=== PATIENT | female | born 1955 | race Caucasian/White ===

== ENCOUNTER → 2019-08-31 | Day surgery (SDC) | payer BC, OTHER ==
[2019-08-28 08:42] LABS: BASOPHILS # (AUTO) 0.1 (0.0-0.1); BASOPHILS % 0.9 % (0.0-1.0); EOSINOPHILS # (AUTO) 0.1 (0.0-0.4); EOSINOPHILS % 1.7 % (0.0-6.0); HEMATOCRIT 43.4 % (34.2-44.1); HEMOGLOBIN 13.7 g/dL (12.0-16.0); LYMPHOCYTES # (AUTO) 2.7 (1.0-3.2); LYMPHOCYTES % 41.6 % (18.0-39.1); MEAN CORPUSCULAR HEMOGLOBIN 26.7 pg (28-32); MEAN CORPUSCULAR HGB CONC 31.6 g/dL (31-35); MEAN CORPUSCULAR VOLUME 84.4 fL (81-99); MONOCYTES # (AUTO) 0.5 (0.2-0.8); MONOCYTES % 8.3 % (4.4-11.3); PLATELET COUNT 272 x10e3/uL (140-360); RED BLOOD COUNT 5.14 x10e6/uL (3.6-5.1); RED CELL DISTRIBUTION WIDTH 13.6 % (11.7-14.4)
[2019-08-28 09:08] LABS: ANION GAP 12.8 mmol/L (8-16); BLOOD UREA NITROGEN 16 mg/dL (7-26); BUN/CREATININE RATIO 23 (6-25); CALCIUM 9.8 mg/dL (8.4-10.2); CARBON DIOXIDE 25 mmol/L (22-29); CHLORIDE 107 mmol/L (98-107); CREATININE, SERUM 0.69 mg/dL (0.57-1.11); EST GLOMERULAR FILTRATION RATE > 60 ML/MIN (60-); GLUCOSE 88 mg/dL (74-118); POTASSIUM 3.8 mmol/L (3.5-5.1); SODIUM 141 mmol/L (136-145)
--- NOTE | 2019-08-28 09:33 | Diagnostic Imaging Report ---
EXAM: CHEST 2 VIEWS DATE: 08/28/2019 8:20 AM INDICATION: Preoperative evaluation COMPARISON: None FINDINGS: The trachea is midline. The lungs are symmetrically expanded without evidence for large focal consolidation, pneumothorax, or significant pleural effusion. The cardiomediastinal silhouette and pulmonary vasculature are within normal limits. No acute osseous abnormality is identified. The surrounding soft tissues are unremarkable. IMPRESSION: No acute cardiopulmonary process identified. Signed by: Dr. Twin Zimmer MD on 08/28/2019 9:30 AM
[~2019-08-31] MED LIST: ACETAMINOPHEN 1000 MG/100 ML IV ONE; AMLODIPINE BESY10 MG PO; BUPIVACAINE HCL 0.5% INJ 30 ML VIAL INJ ONE; CEFAZOLIN SOD 1 GM/NS 50ML 100 ML IV ONE; DEXAMETHASONE SOD PHOS INJ 4 MG/ML VIAL ONE; EPHEDRINE SULFATE INJ 50 MG/ML VIAL ONE; FENTANYL CITRATE/PF 100MCG/2 ML INJ ONE; GLYCOPYRROLATE INJ 0.2 MG/ML VIAL ONE; HYDROCHLOROTHIA25 MG PO; KETOROLAC TROMETHAMINE 30 MG/ML VIAL ONE; LACTATED RINGER'S 1,000 ML ONE; LIDOCAINE HCL 2% LOCAL INJ 5 ML SDV VIAL INJ ONE; LISINOPRIL10 MG PO; MIDAZOLAM HCL 2 MG/2 ML VIAL ONE; NEOSTIGMINE 1 MG/ML 10ML VIAL ONE; ONDANSETRON HCL INJ 2MG/ML 2ML 2 MG/ML VIAL ONE; PHENOL APPLICATORS 1ML 1 ML SOLN.PK.ML ONE; PROPOFOL IV EMULSION 10 MG/ML 20 ML VIAL ONE; SEVOFLURANE INHAL SOLN 250 ML PEN BTL ONE
--- OUTSIDE RECORDS SUMMARY | 2019-08-31 05:34 | XMS REPORT ---
Author Author [facility] t Organization [facility] Address [address] [place] [address] Phone Unavailable Care Team Providers Care Otr Driver Name Role Phone DEVANTE SAMANIEGO Attphys Unavailable Payers Payer Name Policy Type Policy Number Effective Date Expiration Date S ource Problems This patient has no known problems. Allergies, Adverse Reactions, Alerts Allergy Name Allergy Type Status Severity Reaction(s) Onset Date Inacti ve Date Treating Clinician Comments Source No Known Allergies DA Active U 2017-10-22 00:00:00 [facility] Medications This patient has no known medications. Procedures This patient has no known procedures. Results Test Description Test Time Test Comments Results Result Comments Source CHEST 2 VIEWS 2019-08-28 09:30:00 [facility] [address] [address] Patient Name: SIMONE PATIÑO MR #: [id number] : 1955 Age/Sex: 63/F Req #: [id number] Adm Physician: Ordered by: DEVANTE SAMANIEGO DPM Report #: [id number] Location: OR Room/Bed: Procedure: [id number] DX/CHEST 2 VIEWS Exam Date: 08/28/19 Exam Time: 0830 REPORT STATUS: Signed EXAM: CHEST 2 VIEWS DATE: 08/28/2019 8:20 AM INDICATION: Preoperative evaluation COMPARISON: None FINDINGS: The trachea is midline. The lungs are symmetrically expanded without evidence for large focal consolidation, pneumothorax, or significant pleural effusion. The cardiomediastinal silhouette and pulmonary vasculature are within normal limits. No acute osseous abnormality is identified. The surrounding soft tissues are unremarkable. IMPRESSION: No acute cardiopulmonary process identified. Signed by: Dr. Twin Zimmer MD on 08/28/2019 9:30 AM Dictated By: TWIN ZIMMER MD 9 Transcribed By: GRISELDA on 08/28/19929 COPY TO: DEVANTE SAMANIEGO DPM
[2019-08-31 11:10] VITALS: BP 151/73
--- NOTE | 2019-09-13 13:50 | Operative Report ---
DATE OF PROCEDURE: 08/31/2019 SURGEON: Ventura Villareal DPM ROOM NUMBER: [facility]. PREOPERATIVE DIAGNOSES: 1. Hammertoe rigidly contracted 2nd digit, left foot. 2. Painful hardware, left foot. 3. Painful infected ingrown medial border of the hallux on the right foot. POSTOPERATIVE DIAGNOSES: 1. Hammertoe rigidly contracted 2nd digit, left foot. 2. Painful hardware, left foot. 3. Painful infected ingrown medial border of the hallux on the right foot. TITLE OF THE OPERATIONS: 1. Arthrodesis 2nd digit, left foot. 2. Removal of hardware, hallux, 1st metatarsal, left foot. 3. Partial matrixectomy, medial border of the hallux of the right foot. ANESTHESIA: General endotracheal. HEMOSTASIS: A right thigh tourniquet at 350 mmHg. PROCEDURE IN DETAIL: The patient was taken to the operating room in a mildly sedated state and placed on the operating table in supine position. Following induction of general anesthetic, the right lower extremity was placed on the operating table as was the left lower extremity prior to performing following procedures. Attention was directed first to the left foot. Linear longitudinal incision was made across the proximal interphalangeal joint level of the 2nd digit. The incision was deepened via sharp and blunt dissection on the level of dorsal capsular structure. Care was taken to identify and retract all vital structures encountered. The head of the proximal phalanx was delivered in surgical site remodeled. Utilizing a combination of oscillating saw and two-step cup and cone reamers, the base of the intermediate phalanx was similarly drilled. The appropriate two-step implant was selected and inserted and compression fitting was achieved. The area was irrigated with copious amounts of sterile saline solution. Deep closure and tendon repair were 3-0 Vicryl, skin closure 4-0 nylon. Attention was then directed to the 1st metatarsophalangeal joint of the left foot. Linear incision was placed overlying the previously installed hardware for correction of hallux valgus. Two cannulated screws were identified and resected utilizing standard technique. Those areas were irrigated with copious amounts of sterile saline solution. Deep closure was a combination of 3-0 Vicryl and 4-0 Vicryl and 4-0 nylon. The areas of surgery were blocked with 0.5 Marcaine and Decadron [place]. Released the pneumatic thigh tourniquet showed a normal hyperemic flush to all digits of the left foot. The patient left the operating room with vital signs stable in apparent satisfactory condition. Prior to leaving the operating room, attention was directed to the right foot, where an infected ingrown right hallux was noted under separate prep. A partial matrixectomy was performed with removal of the medial border utilizing a nail splitter and curettage for the matrix. Phenol was applied three applications of 30 seconds each. The area was irrigated and the appropriate mildly compressive dressing was applied. Released the pneumatic ankle tourniquet on the right side, also showed a normal hyperemic flush. The patient left the operating room with vital signs stable in apparent satisfactory condition and will present to me within one-week postoperatively. LEXI Arnold/AMANDA /[id number]
== END | disposition home or self-care (01) ==
LOC: OR 05:32
PROVIDERS: ATTEND Podiatrist Foot Surgery
DX: M20.42 Other hammer toe(s) (acquired), left foot (principal); L60.0 Ingrowing nail; T84.84XA Pain due to internal orthopedic prosthetic devices, implants and grafts, initial encounter; I10 Essential (primary) hypertension; Y83.8 Other surgical procedures as the cause of abnormal reaction of the patient, or of later complication, without mention of misadventure at the time of the procedure; Z01.810 Encounter for preprocedural cardiovascular examination; Z01.812 Encounter for preprocedural laboratory examination; Z01.818 Encounter for other preprocedural examination; Z11.59 Encounter for screening for other viral diseases; Z87.01 Personal history of pneumonia (recurrent)
CPT/HCPCS: 11750; 20680; 28285; 36415; 71046; 76000; 80048; 85025; 87635; 93005; C1713 ×2; J0131; J0690; J1100; J1885; J2001; J2250; J2405; J2704; J2710; J3010; J7121

== ENCOUNTER → 2020-03-28 | Day surgery (SDC) | payer BC, MEDICARE ==
[2020-03-25 08:24] LABS: BASOPHILS # (AUTO) 0.1 (0.0-0.1); EOSINOPHILS # (AUTO) 0.1 (0.0-0.4); HEMATOCRIT 41.6 % (34.2-44.1); HEMOGLOBIN 13.3 g/dL (12.0-16.0); LYMPHOCYTES # (AUTO) 2.7 (1.0-3.2); LYMPHOCYTES % 40.4 % (18.0-39.1); MEAN CORPUSCULAR HEMOGLOBIN 26.9 pg (28-32); MEAN CORPUSCULAR VOLUME 84.2 fL (81-99); MONOCYTES # (AUTO) 0.7 (0.2-0.8); MONOCYTES % 9.7 % (4.4-11.3); NEUTROPHILS # (AUTO) 3.2 (2.1-6.9); NEUTROPHILS % 47.3 % (38.7-80.0); PLATELET COUNT 275 x10e3/uL (140-360); RED BLOOD COUNT 4.94 x10e6/uL (3.6-5.1); RED CELL DISTRIBUTION WIDTH 14.1 % (11.7-14.4)
[2020-03-25 08:49] LABS: ANION GAP 11.2 mmol/L (8-16); BLOOD UREA NITROGEN 18 mg/dL (7-26); BUN/CREATININE RATIO 25 (6-25); CALCIUM 9.3 mg/dL (8.4-10.2); CARBON DIOXIDE 26 mmol/L (22-29); CHLORIDE 105 mmol/L (98-107); CREATININE, SERUM 0.72 mg/dL (0.57-1.11); EST GLOMERULAR FILTRATION RATE > 60 ML/MIN (60-); GLUCOSE 91 mg/dL (74-118); POTASSIUM 4.2 mmol/L (3.5-5.1); SODIUM 138 mmol/L (136-145)
[~2020-03-28] MED LIST changes: -ACETAMINOPHEN 1000 MG/100 ML IV ONE; -CEFAZOLIN SOD 1 GM/NS 50ML 100 ML IV ONE; -GLYCOPYRROLATE INJ 0.2 MG/ML VIAL ONE; -KETOROLAC TROMETHAMINE 30 MG/ML VIAL ONE; -LACTATED RINGER'S 1,000 ML ONE; -MIDAZOLAM HCL 2 MG/2 ML VIAL ONE; -PHENOL APPLICATORS 1ML 1 ML SOLN.PK.ML ONE
[2020-03-28 11:10] VITALS: BP 146/79
== END | disposition home or self-care (01) ==
LOC: OR 06:32
PROVIDERS: ATTEND Podiatrist Foot Surgery
DX: M20.42 Other hammer toe(s) (acquired), left foot (principal); M20.5X2 Other deformities of toe(s) (acquired), left foot; R06.83 Snoring; I10 Essential (primary) hypertension; F41.9 Anxiety disorder, unspecified; Z01.810 Encounter for preprocedural cardiovascular examination; Z01.812 Encounter for preprocedural laboratory examination; Z01.818 Encounter for other preprocedural examination; Z20.828 Contact with and (suspected) exposure to other viral communicable diseases
CPT/HCPCS: 36415; 71046; 76000; 80048; 85025; 93005; C1713; J1100; J2001; J2405; J2710; J3010; Q4100; U0002

== ENCOUNTER → 2024-03-09 | Day surgery (SDC) | payer BC, MEDICARE, OTHER ==
[2024-03-06 12:09] LABS: BASOPHILS # (AUTO) 0.1 (0.0-0.1); BASOPHILS % 1.1 % (0.0-1.0); EOSINOPHILS # (AUTO) 0.1 (0.0-0.4); EOSINOPHILS % 1.1 % (0.0-6.0); HEMATOCRIT 42.9 % (34.2-44.1); HEMOGLOBIN 13.8 g/dL (12.0-16.0); LYMPHOCYTES # (AUTO) 2.6 (1.0-3.2); LYMPHOCYTES % 35.4 % (18.0-39.1); MEAN CORPUSCULAR HGB CONC 32.2 g/dL (31-35); MONOCYTES # (AUTO) 0.6 (0.2-0.8); MONOCYTES % 8.3 % (4.4-11.3); NEUTROPHILS # (AUTO) 3.9 (2.1-6.9); NEUTROPHILS % 53.8 % (38.7-80.0); PLATELET COUNT 267 x10e3/uL (140-360); RED BLOOD COUNT 4.93 x10e6/uL (3.6-5.1); WHITE BLOOD COUNT 7.26 x10e3/uL (4.8-10.8)
[~2024-03-09] MED LIST changes: +ACETAMINOPHEN 1000 MG/100 ML 100 ML IV ONE; +BIOTIN1 MG; -BUPIVACAINE HCL 0.5% INJ 30 ML VIAL INJ ONE; -DEXAMETHASONE SOD PHOS INJ 4 MG/ML VIAL ONE; +IRON; +MULTI-VITAMIN1 EACH PO; -NEOSTIGMINE 1 MG/ML 10ML VIAL ONE; +OMEGA 3 1,0001 EACH PO; -ONDANSETRON HCL INJ 2MG/ML 2ML 2 MG/ML VIAL ONE; -SEVOFLURANE INHAL SOLN 250 ML PEN BTL ONE
[2024-03-09] MEDS: CEFAZOLIN SODIUM 2 GM ONE (07:50)
[2024-03-09] MEDS: LACTATED RINGER'S 1,000 ML ONE (07:50)
[2024-03-09 12:00] VITALS: BP 165/89; PULSE 75; RESP 16; O2SAT 98
== END | disposition home or self-care (01) ==
LOC: OR 07:13
PROVIDERS: ATTEND Podiatrist Foot Surgery
DX: M20.41 Other hammer toe(s) (acquired), right foot (principal); D23.71 Other benign neoplasm of skin of right lower limb, including hip; M89.9 Disorder of bone, unspecified; I10 Essential (primary) hypertension; Z01.810 Encounter for preprocedural cardiovascular examination; Z01.812 Encounter for preprocedural laboratory examination; Z01.818 Encounter for other preprocedural examination; Z79.899 Other long term (current) drug therapy
CPT/HCPCS: 28124; 28285; 36415; 71046; 85025; 93005; J0131; J0690; J2003; J2704; J3010; J7121; 76000